=== PATIENT | female | born 1945 | race African-American/Black ===

== ENCOUNTER 2022-01-07 10:46 | Observation (INO) ==
[2022-01-07 11:15] LABS: Basophils % 0.6 % (0.0-0.8); Eosinophils # 0.1 10*3/uL (0.0-0.87); Eosinophils % 2.1 % (0.00-10.9); Hematocrit 41.1 VOL% (35.7-47.0); Hemoglobin 13.5 GM/DL (12.0-16.0); Immature Granulocytes % 0.2 %; Immature Granulocytes Absolute 0.01 #; Lymphocytes # 2.7 10*3/uL (1.4-4.0); Lymphocytes % 52.7 % (21.3-54.2); Mean Corpuscular HGB Conc 32.8 GM/DL (32-36); Mean Corpuscular Volume 90.9 FL (87-102); Mean Platelet Volume 9.9 FL (9.6-12.0); Monocytes # 0.6 10*3/uL (0.11-0.8); Monocytes % 10.7 % (1.7-12.7); Neutrophils % 33.7 % (38.7-73.9); Platelet Count 202 T/CUMM (130-400); Red Blood Count 4.52 MC/CUMM (3.8-5.5); Red Cell Distribution Width 13.8 % (9.3-17.3); White Blood Count 5.1 T/CUMM (4-12)
[2022-01-07] MEDS ORDERED: guaiFENesin/DM ER 600-30 MG TABLET PO PRN (11:15)
[2022-01-07] MEDS ORDERED: ONDANSETRON 4 MG/2 ML VIAL IV PRN (11:15)
[2022-01-07] MEDS ORDERED: MAGNESIUM SULF RIDER 2 GM/50 ML PREMIX IV PRN (11:15)
[2022-01-07] MEDS ORDERED: hydrALAZINE 20 MG/1 ML VIAL IV PRN (11:15)
[2022-01-07] MEDS ORDERED: PROMETHAZINE 25 MG TABLET PO PRN (11:15)
[2022-01-07] MEDS ORDERED: diphenhydrAMINE CAP 25 MG CAPSULE PO PRN (11:15)
[2022-01-07] MEDS ORDERED: DOCUSATE SODIUM 100 MG CAPSULE PO PRN (11:15)
[2022-01-07] MEDS ORDERED: ALUMINUM/MAGNES/SIMETH MAX STR 30 ML UDCUP PO PRN (11:15)
[2022-01-07] MEDS ORDERED: MAGNESIUM SULF RIDER 4 GM/100 ML PREMIX IV PRN (11:15)
[2022-01-07 11:25] LABS: PT Patient Result 10.8 SECS (10.5-12.0); Partial Thromboplastin Time 31.4 SECS (23.7-32.9)
[2022-01-07 11:41] LABS: Albumin 3.7 G/DL (3.4-5.0); Bilirubin,Total 0.4 MG/DL (0.20-1.00); Calcium 9.5 MG/DL (8.5-10.1); Osmolality,Calculated 282.4 MOS/KG (273-304); Potassium 3.8 MMOL/L (3.5-5.1); Thyroid Stimulating Hormone 1.64 uIU/ml (0.358-3.74); Total Protein 6.8 G/DL (6.4-8.2)
[2022-01-07 12:00] LABS: Eosinophils 3 % (0-10); Lymphocytes 60 % (20-55); Metamyelocytes 1 %; Platelet Estimate Normal; Total Cells Counted 100
[2022-01-07 12:01] LABS: Atypical Lymphocytes 1+
[2022-01-07] MEDS ORDERED: MAGNESIUM SULF RIDER 2 GM/50 ML PREMIX IV ONE (13:30)
[2022-01-07] MEDS ORDERED: DIAZEPAM 5 MG TABLET PO ONE (13:33)
[2022-01-07] MEDS ORDERED: ceFAZolin 1,000 MG VIAL IRRIG ONE (13:34)
[2022-01-07] MEDS ORDERED: diphenhydrAMINE CAP 25 MG CAPSULE PO ONE (13:34)
[2022-01-07] MEDS ORDERED: PNEUMOCOCCAL VACCINE (13 VALENT) 0.5 ML SYRINGE IM ONE (13:49)
[2022-01-07] MEDS ORDERED: MIDAZOLAM 2 MG/2 ML VIAL ONE (16:02)
[2022-01-07] MEDS ORDERED: fentaNYL 100 MCG/2 ML VIAL ONE (16:02)
[2022-01-07] MEDS ORDERED: ceFAZolin 1,000 MG VIAL ONE (16:05)
[2022-01-07] MEDS ORDERED: TISSUE ADHESIVE 1 EACH APPLICATOR TOP ONE (16:05)
[2022-01-07] MEDS ORDERED: PROMETHAZINE 25 MG/1 ML VIAL ONE (16:15)
[2022-01-07] MEDS ORDERED: ZALEPLON 5 MG CAPSULE PO PRN (17:39)
[2022-01-07] MEDS ORDERED: KETOROLAC 15 MG/1 ML VIAL IV PRN (17:42)
[2022-01-08] MEDS: ACETAMINOPHEN 325 MG TABLET PO PRN ×2 (03:30→14:10)
[2022-01-08 04:55] LABS: Basophils % 0.4 % (0.0-0.8); Eosinophils # 0.1 10*3/uL (0.0-0.87); Eosinophils % 1.8 % (0.00-10.9); Hematocrit 38.5 VOL% (35.7-47.0); Hemoglobin 12.5 GM/DL (12.0-16.0); Immature Granulocytes % 0.4 %; Immature Granulocytes Absolute 0.02 #; Lymphocytes # 1.5 10*3/uL (1.4-4.0); Lymphocytes % 25.7 % (21.3-54.2); Mean Corpuscular HGB Conc 32.5 GM/DL (32-36); Mean Corpuscular Volume 92.3 FL (87-102); Mean Platelet Volume 9.3 FL (9.6-12.0); Monocytes # 0.6 10*3/uL (0.11-0.8); Monocytes % 10.7 % (1.7-12.7); Platelet Count 179 T/CUMM (130-400); Red Blood Count 4.17 MC/CUMM (3.8-5.5); Red Cell Distribution Width 13.8 % (9.3-17.3); White Blood Count 5.7 T/CUMM (4-12)
[2022-01-08 08:07] LABS: Albumin 3.2 G/DL (3.4-5.0); Bilirubin,Total 0.6 MG/DL (0.20-1.00); Calcium 9.7 MG/DL (8.5-10.1); Osmolality,Calculated 281.3 MOS/KG (273-304); Potassium 3.7 MMOL/L (3.5-5.1); Total Protein 6.5 G/DL (6.4-8.2)
[2022-01-08] MEDS ORDERED: PANTOPRAZOLE 40 MG TABLET PO SCH (09:00)
[2022-01-08] MEDS ORDERED: DIAZEPAM 5 MG TABLET PO ONE (10:00)
[2022-01-08] MEDS ORDERED: diphenhydrAMINE CAP 25 MG CAPSULE PO ONE (10:00)
[2022-01-08] MEDS ORDERED: ceFAZolin 1,000 MG VIAL IRRIG ONE (13:25)
[2022-01-08 16:55] VITALS: BP 123/84
== END 2022-01-08 17:50 | disposition home or self-care (01) ==
LOC: N.ED 10:46 → N.EDINP 10:46 → N.ICU 13:00
PROVIDERS: ADMIT Internal Medicine Cardiovascular Disease; ATTEND Internal Medicine Cardiovascular Disease